=== PATIENT | female | born 1945 | race Caucasian/White ===

== ENCOUNTER 2019-02-23 08:23 | Day surgery (SDC) | payer MEDICARE ==
[2019-02-21 11:36] VITALS: BMI 34.3
--- NOTE | 2019-02-23 07:57 | P.GSHP ---
History of Present Illness H&P Date: 02/23/19 CHIEF COMPLAINT: GERD HISTORY OF PRESENT ILLNESS: The patient is a 74-year-old female who presents reports gastroesophageal reflux disease. Upper endoscopy was offered for further evaluation and management. PAST MEDICAL HISTORY: Please see list. PAST SURGICAL HISTORY: Please see list. MEDICATIONS: Please see list. ALLERGIES: Please see list. SOCIAL HISTORY: No illicit drug use FAMILY HISTORY: No reports of Crohn disease or ulcerative colitis. REVIEW OF ORGAN SYSTEMS: CONSTITUTIONAL: No reports of fevers or chills. GI: Denies any blood in stools or constipation. PHYSICAL EXAM: VITAL SIGNS: Stable GENERAL: Well-developed and pleasant in no acute distress. HEENT: No scleral icterus. Extraocular movements grossly intact. Moist buccal mucosa. NECK: Supple without lymphadenopathy. CHEST: Unlabored respirations. Equal bilateral excursions. CARDIOVASCULAR: Regular rate and rhythm. Distal 2+ pulses. ABDOMEN: Soft, nondistended. MUSCULOSKELETAL: No clubbing, cyanosis, or edema. ASSESSMENT: 1. Gastroesophageal reflux disease PLAN: 1. Recommend proceeding with an upper endoscopy Past Medical History Past Medical History: COPD, GERD/Reflux, Hyperlipidemia, Thyroid Disorder Additional Past Medical History / Comment(s): 1 mos ago had pain top of stomach after eating History of Any Multi-Drug Resistant Organisms: None Reported Past Surgical History: Bariatric Surgery, Cholecystectomy, Hysterectomy Additional Past Surgical History / Comment(s): gastric bypass 2009, reconstruction yannick feet, COLONOSCOPY, EGD, HX GASTRIC ULCER Past Anesthesia/Blood Transfusion Reactions: No Reported Reaction Smoking Status: Former smoker - Past Family History Father Family Medical History: Cancer, Deep Vein Thrombosis (DVT) Mother Family Medical History: Cancer Sister(s) Family Medical History: Cancer Medications and Allergies Home Medications Medication Instructions Recorded Confirmed Type Atorvastatin [Lipitor] 20 mg PO DAILY 05/25/18 02/21/19 History Calcium Carbonate [Calcium] 1,200 mg PO DAILY 05/25/18 02/21/19 History Cholecalciferol (Vitamin D3) 2,000 unit PO DAILY 05/25/18 02/21/19 History [Vitamin D3] Cyanocobalamin (Vitamin B-12) 2,000 mcg PO DAILY 05/25/18 02/21/19 History [Vitamin B-12] Levothyroxine Sodium [Synthroid] 75 mcg PO QAM 05/25/18 02/21/19 History Multivitamins, Thera [Multivitamin 1 tab PO DAILY 05/25/18 02/21/19 History (formulary)] Vitamin E 1,000 unit PO DAILY 05/25/18 02/21/19 History Omeprazole 40 mg PO DAILY 02/21/19 02/21/19 History Allergies Allergy/AdvReac Type Severity Reaction Status Date / Time adhesive tape Allergy Itching Verified 05/25/18 10:18
[~2019-02-23 08:23] MED LIST: LACTATED RINGERS 1,000 ML IV SCH
[2019-02-23] MEDS ORDERED: LIDOCAINE 1% 20 ML VIAL (10MG/ML) FOR IV START INTRADERMA ONE (08:55)
[2019-02-23] MEDS ORDERED: LIDOCAINE 1% INJ 10MG/ML (20 ML MDV) ONE (09:05)
[2019-02-23] MEDS ORDERED: PROPOFOL 10 MG/ML 20 ML VIAL IV ONE (09:05)
[2019-02-23 09:07] VITALS: TEMP 97.5
--- NOTE | 2019-02-23 09:23 | P.PCN ---
Date of Procedure: 02/23/19 Description of Procedure: PREOPERATIVE DIAGNOSIS: History of gastric ulcers s/p Sydni-en-y gastric bypass. POSTOPERATIVE DIAGNOSIS: History of gastric ulcers s/p Sydni-en-y gastric bypass. Gastrojejunal stricture with resolved chronic ulcer OPERATION: Esophagogastrojejunoscopy with balloon dilatation, 20 mm. SURGEON: Lucie Jansen MD ANESTHESIA: MAC. INDICATIONS: The patient is a 74-year-old female who presents with a history of ulcers including gastric bypass. Benefits and risks of the procedure were described. Informed consent was obtained. DESCRIPTION: The patient was brought into the endoscopy suite and laid in the left lateral decubitus position. After a timeout was confirmed, the procedure was initiated. An Olympus gastroscope was passed along the posterior oropharynx down to the distal esophagus where the squamocolumnar junction was unremarkable. The gastric pouch was entered. A gastrojejunal stricture of 15 mm was found as the adult gastroscope was 9.5 mm in size. A [employer] balloon dilator was placed through the scope. Final insufflation up to 20 mm was performed with a total of 2 minutes. The scope was advanced up to 60 cm from the incisors into the Sydni limb. The mucosa of the gastrojejunal anastomosis was intact. Resolved chronic gastrojejunal marginal ulcer was encountered. No full-thickness injury was encountered. The gastric pouch has an anomaly of moderately angulated entry into the sydni limb. The GI tract was desufflated. The patient tolerated the procedure well. FINDINGS: Squamocolumnar junction unremarkable at 32 cm. Stricture of approximately 15 mm encountered. Resolved chronic gastrojejunal ulceration encountered. Successful balloon dilatation to 20 mm. Diaphragmatic hiatal hernia The gastric pouch has an anomaly of moderately angulated entry into the sydni limb. RECOMMENDATIONS: Upper endoscopy as needed Plan - Discharge Summary Discharge Rx Participant: No New Discharge Prescriptions: No Action Multivitamins, Thera [Multivitamin (formulary)] 1 tab PO DAILY Vitamin E 1,000 unit PO DAILY Cyanocobalamin (Vitamin B-12) [Vitamin B-12] 2,000 mcg PO DAILY Levothyroxine Sodium [Synthroid] 75 mcg PO QAM Cholecalciferol (Vitamin D3) [Vitamin D3] 2,000 unit PO DAILY Atorvastatin [Lipitor] 20 mg PO DAILY Calcium Carbonate [Calcium] 1,200 mg PO DAILY Omeprazole 40 mg PO DAILY Discharge Medication List Atorvastatin [Lipitor] 20 mg PO DAILY 05/25/18 [History] Calcium Carbonate [Calcium] 1,200 mg PO DAILY 05/25/18 [History] Cholecalciferol (Vitamin D3) [Vitamin D3] 2,000 unit PO DAILY 05/25/18 [History] Cyanocobalamin (Vitamin B-12) [Vitamin B-12] 2,000 mcg PO DAILY 05/25/18 [History] Levothyroxine Sodium [Synthroid] 75 mcg PO QAM 05/25/18 [History] Multivitamins, Thera [Multivitamin (formulary)] 1 tab PO DAILY 05/25/18 [History] Vitamin E 1,000 unit PO DAILY 05/25/18 [History] Omeprazole 40 mg PO DAILY 02/21/19 [History]
[2019-02-23 09:26] VITALS: RESP 16
[2019-02-23 09:46] VITALS: BP 163/73; PULSE 70
== END 2019-02-23 10:05 | disposition home or self-care (01) ==
LOC: ORWHC2ENDO 08:23
PROVIDERS: ATTEND Surgery Plastic and Reconstructive Surgery
DX: K91.30 Postprocedural intestinal obstruction, unspecified as to partial versus complete (principal); K95.89 Other complications of other bariatric procedure; Y84.8 Other medical procedures as the cause of abnormal reaction of the patient, or of later complication, without mention of misadventure at the time of the procedure; Z98.84 Bariatric surgery status; Z87.11 Personal history of peptic ulcer disease; Z87.19 Personal history of other diseases of the digestive system; K28.7 Chronic gastrojejunal ulcer without hemorrhage or perforation
CPT/HCPCS: 43249; J2001; J2704; C1726